=== PATIENT | male | born 1955 | race African-American/Black ===

== ENCOUNTER 2020-09-07 11:24 | Emergency (ER) | payer OTHER ==
[2020-09-08 01:48] LABS: SARS-CoV-2 PCR by NAA Not Detected (NotDetected)
== END 2020-09-07 12:00 | disposition home or self-care (01) ==
LOC: MADERS 11:24
DX: J06.9 Acute upper respiratory infection, unspecified (principal); Z20.822 Contact with and (suspected) exposure to COVID-19; M19.90 Unspecified osteoarthritis, unspecified site; I10 Essential (primary) hypertension; F17.210 Nicotine dependence, cigarettes, uncomplicated
CPT/HCPCS: 87635; 99283; U0003; U0005

== ENCOUNTER 2022-06-13 13:00 | Emergency (ER) | payer OTHER | END 2022-06-13 14:06 | disposition home or self-care (01) | LOC: MADERS 13:00 | DX: I10 Essential (primary) hypertension (principal); M19.90 Unspecified osteoarthritis, unspecified site; F17.210 Nicotine dependence, cigarettes, uncomplicated; Z76.0 Encounter for issue of repeat prescription | CPT/HCPCS: 99281 ==